=== PATIENT | female | born 1970 | race Caucasian/White ===

== ENCOUNTER 2019-01-12 15:19 | Outpatient (REF) | payer BC, SELFPAY | END 2019-01-12 15:39 | LOC: NCHCN 15:19 | PROVIDERS: PCP Nurse Practitioner Family; Visit Provider Nurse Practitioner Family | DX: R39.11 Hesitancy of micturition (principal) | CPT/HCPCS: 87480; 87510; 87660 ==

== ENCOUNTER 2019-10-18 14:17 | Outpatient (REF) | payer BC, SELFPAY ==
--- NOTE | 2019-10-18 13:15 | PAPFT_PTH ---
PATIENT: Geovanna Vital LOC: [facility] U#:[id number] AGE/SX: 49/F ROOM: RE10/18/[address]: Kati Christensen : 1970 BED: DIS: 10/18/2019 SPEC #: [id number] RECD: 10/19/19 12:59 STATUS: NEREYDA REQ #: [id number] MEHRAN: 10/18/19 13:[address]: Kati Christensen DEPT: [facility] Cytology RECD BY: Sharon Christopher Tissues: 1 - CX/ENDOCX FOR PAP SMEARS Procedures: PAP THIN PREP/UVM Screening HPV DNA PROBE Comments: [id number]
[2019-10-18 21:28] LABS: TSH (W/Ref FT4) 0.81 uIU/mL (0.36-3.74)
== END 2019-10-18 14:37 ==
LOC: NCHCN 14:17
PROVIDERS: PCP Nurse Practitioner Family; Visit Provider Nurse Practitioner Family
DX: Z00.00 Encounter for general adult medical examination without abnormal findings (principal); E66.3 Overweight; Z12.4 Encounter for screening for malignant neoplasm of cervix; Z01.419 Encounter for gynecological examination (general) (routine) without abnormal findings; Z11.51 Encounter for screening for human papillomavirus (HPV)
CPT/HCPCS: 88142; 84443; 87624

== ENCOUNTER 2020-08-21 11:21 | Outpatient (REF) | payer BC, SELFPAY ==
[2020-08-22 14:46] LABS: Chlamydia Result Negative (Negative); GC Result Negative (Negative)
== END 2020-08-21 11:41 ==
LOC: NCHCN 11:21
PROVIDERS: PCP Nurse Practitioner Family; Visit Provider Family Medicine
DX: O71.82 Other specified trauma to perineum and vulva (principal)
CPT/HCPCS: 87491; 87591

== ENCOUNTER 2020-11-22 14:38 | Outpatient (REF) | payer BC, SELFPAY ==
[2020-11-22 19:23] LABS: HCT 40.3 % (36.0-46.0); HGB 13.5 g/dL (11.2-15.7); MCH 30.8 pg (27.0-33.0); MCHC 33.5 % (32.0-36.0); MCV 91.8 fL (80-95); MPV 10.8 fL (8.0-11.0); Platelet Count 232 10^3/uL (130-400); RBC 4.39 10^6/uL (3.93-5.22); RDW 12.5 % (11.7-14.6); RDW-SD 42.3 fL; WBC 5.29 10^3/uL (4.4-10.8)
[2020-11-22 19:41] LABS: FREE T4 1.06 ng/dL (0.76-1.46); TSH 0.76 uIU/mL (0.36-3.74)
[2020-11-22 21:29] LABS: Vitamin D 25 Total 18.3 ng/mL (30-100)
[2020-11-23 16:54] LABS: T3,Free 3.6 pg/mL (2.8-5.3)
== END 2020-11-22 14:39 | disposition home or self-care (01) ==
LOC: NCHCN 14:38
PROVIDERS: PCP Nurse Practitioner Family; Visit Provider Family Medicine
DX: R00.2 Palpitations (principal)
CPT/HCPCS: 82306; 85027; 84439; 84443; 84481

== ENCOUNTER 2020-11-27 01:47 | Outpatient (CLI) | payer BC, SELFPAY ==
--- NOTE | 2020-11-27 08:44 | DI.MAMMO_ITS ---
EXAM: MG MAMMO SCREENING CLINICAL HISTORY: SCREENING, Z12.31 TECHNIQUE: Bilateral full field digital CC and MLO mammographic images were obtained with 3D tomosyn thesis and utilizing computer aided detection (CAD). COMPARISON: None. FINDINGS: Masses/Architectural Distortion: None seen. Microcalcifications: No suspicious pleomorphic-type are seen. Skin Thickening/Nipple Retraction: None. IMPRESSION: 1. No significant interval change with no specific features of malignancy noted. 2. Unless there is more urgent need, screening mammography is recommended, as per [place] [employer] guidelines. BI-RADS Category 1 - Negative Breast Density - Category B - Scattered areas of fibroglandular density Breast density category C or D implies that the patient has dense breast tissue. Dense breast tissue is very common and is not abnormal but dense breast tissue can make it harder to find cancer on a ma mmogram. Also, dense breast tissue may increase their breast cancer risk. This information about the result of the mammogram report was provided to the patient to raise their awareness. Use this report when you speak with the patient about their risks for breast cancer, which includes their family hist ory. At that time, you may recommend for more screening tests (Ultrasound or MRI) as they might be us eful based on their risk. A negative radiographic report should not delay biopsy if a dominant or clinically suspicious mass is present. Up to ten percent of cancers are not identified on mammography. A negative report may reinforce clinical impression. Adenosis and dense breasts may obscure an underlying neoplasm. False positive reports average 6 to 10%. Patient will receive a letter notifying them of these results.
== END 2020-11-27 02:07 ==
PROVIDERS: PCP Nurse Practitioner Family; Visit Provider Family Medicine
DX: Z12.31 Encounter for screening mammogram for malignant neoplasm of breast (principal)
CPT/HCPCS: 77063; 77067

== ENCOUNTER 2021-05-13 01:33 | Outpatient (CLI) | payer BC, SELFPAY ==
[2021-05-13 10:58] LABS: Source Nasal/Nares
[2021-05-13 15:19] LABS: COVID-19 PCR Negative (Negative)
== END 2021-05-13 01:34 | disposition home or self-care (01) ==
LOC: LBO 01:33
PROVIDERS: PCP Nurse Practitioner Family; Visit Provider Surgery
DX: Z20.822 Contact with and (suspected) exposure to COVID-19 (principal); Z01.818 Encounter for other preprocedural examination
CPT/HCPCS: 87635

== ENCOUNTER 2021-05-15 07:27 | Day surgery (SDC) | payer BC, SELFPAY ==
--- NOTE | 2021-05-15 06:32 | W.COLOREPORT ---
Colonoscopy Report Date of procedure: 05/15/21 Pre-op diagnosis general: Colon Cancer Screening Post-op diagnosis procedure note: other (rectal polyps) Procedure: Colonoscopy with polypectomy Surgeon: Lori New Anesthesia Type: General:No Airway (Chavo Chandra CRNA) Estimated blood loss (mL): 3 Pathology: other (4 rectal polyps) Complications: None Disposition: same day Indications: The patient is here for Colonoscopy pre-op. She has no family history of colon cancer. She has not had any bowel habit changes. -Discussed colonoscopy bowel prep as well as the procedure. Discussed possible complications of the procedure to include bleeding, pain, perforation, missed small lesion/polyp, sore throat, aspiration and adverse reaction to the medications. Questions were answered to patient?s satisfaction. No guarantees were implied or given. Prep: Miralax/Dulcolax Procedure Start Time: 08:25 Procedure End Time: 08:48 Retraction Time: 13 minutes Findings: 4 small, most likely benign, rectal polyps Procedure Description: After informed consent was obtained the patient was taken to the procedure room and placed in a left decubitous position. Monitors were applied and a time out was done. The patients name, date of , procedure, allergies to medications and metal in their body was reviewed. The patient was then sedated. Once sedated and comfortable a rectal exam was done. External exam was normal. Internal exam revealed a normal sphincter tone and no palpable masses. The scope was then introduced and retro-flexed. No internal hemorrhoids, polyps or masses were identified on retro-flexion. The scope was then advanced to the cecum without difficulty. The ileocecal vlave and appendiceal orifice were identified. The prep was good. The scope was then slowly retracted over 13 minutes back into the rectum. Polyps were removed with cold forceps in the rectum x4. There was no diverticulosis noted. The scope was removed and the patient was woken up and taken back to Same day surgery in stable condition. The patient tolerated the procedure well and there were no immediate complications. Follow up: The patient should follow up in 10 years, most liekly, unless they develop changes in bowel habits or other new gastrointestinal complaints.
--- NOTE | 2021-05-15 06:33 | W.PM.DSUDISC ---
Discharge Plan Disposition Patient Disposition: HOME Condition: Good Discharge Details Reason For Visit: Colonoscopy Attending Provider: Lori New Primary Care Provider: Kati Christensen Home Meds and New Rx's Prescriptions: Continued mometasone [Nasonex] 50 mcg/actuation spray,non-aerosol 2 spray intranasal DAILY RF: 0 hydrocortisone 1 % cream 1 applic topical TID PRNRF: 0 fexofenadine [Indy Allergy] 180 mg tablet 180 mg PO DAILY RF: 0 Discontinued bisacodyl [Dulcolax (bisacodyl)] 5 mg tablet,delayed release (DR/EC) 5 mg PO ONCE Qty: 4 RF: 0 polyethylene glycol 3350 17 gram/dose powder 238 g PO ONCE Qty: 238 RF: 0 Discharge Instructions Instructions: Colorectal Polyps (DC) Additional Instructions: Findings: 4 small polyps. Most likely benign Follow up: depends on final pathology results. You will receive a letter in the mail Please call if you develop: fevers >101.5 Nausea or Vomiting Abdominal pain that is not transient Rectal bleeding that is more then a tbsp A hard abdomen and inability to pass gas DAY SURGERY UNIT POST ENDOSCOPY INSTRUCTIONS Instructions for everyone who is given Anesthesia: For your safety, please do the following for the next 24 Hours: a. Do not drive or operate dangerous equipment b. Do not drink alcohol beverages or use any recreational drugs for the first 24 hours or while taking pain medications. The medications in your body may have a reaction that can be dangerous. c. Do not make any important decisions or sign any important papers 1. Generally there are no restrictions on your activity after a day or so has gone by, but you may feel a bit fatigued for a few days. 2. After you arrive home you may have a light meal and return to a normal diet as you can tolerate it without feeling sick to your stomach. 3. After surgery, you may feel pain or discomfort. This should be only transient, but if it persists please contact your doctor. 4. If there are any questions regarding the findings of your procedure, please feel free to contact your doctor. 6. If you are unable to contact your doctor with a problem, contact the hospital at [phone]. 7. Continue all your regular medications unless directed otherwise. I understand the above instructions and have no questions. Signature of Patient or Responsible Adult Escort Date/Time Name of Responsible Adult Escort Signature of Nurse Date/Time Activity:: Activity as Tolerated Diet:: As Tolerated Discharge Orders Discharge Orders: Discharge Order (Routine); Ordered 05/15/21 Ordered By: Lori New
[2021-05-15 07:46] VITALS: BP 113/70; PULSE 75; RESP 18; TEMP 36.4; O2SAT 99
--- NOTE | 2021-05-15 08:03 | W.ANESPRE ---
General Info Date of Service Date Performed: 05/15/21 Height: 5 ft 10 in Weight: 77.111 kg Body Mass Index (BMI): 24.3 Surgical Procedure: Operation Date: 05/15/21 09:05 Proposed Procedures Side Surgeon p Chau New MD Meds Allergies and Home Medications Allergies Allergy/AdvReac Type Severity Reaction Status Date / Time aspirin Allergy Severe unknown Verified 05/15/21 07:43 Penicillins Allergy Intermediate unknown Verified 05/15/21 07:43 Home Medication Medication Instructions Recorded fexofenadine 180 mg tablet 180 mg PO DAILY 12/04/20 hydrocortisone 1 % topical cream 1 applic TOPICAL TID PRN 12/04/20 bisacodyl 5 mg tablet,delayed 5 mg PO ONCE #4 tab 04/04/21 release mometasone 50 mcg/actuation nasal 2 spray INTRANASAL DAILY 04/04/21 spray polyethylene glycol 3350 17 238 g PO ONCE #238 g 04/04/21 gram/dose oral powder Current Visit Medications: Current Medications Generic Name Dose Route Start Last Admin Trade Name Anilq PRN Reason Stop Dose Admin Hyoscyamine Sulfate 0.125 mg 05/15/21 06:34 Hyoscyamine 0.125 Mg Sl/Oral/Chew SL DIRECTED PRN Ringer's Solution 1,000 mls @ 80 mls/hr 05/15/21 06:00 IV 06/02/21 23:59 [facility] IV Miscellaneous Supplies 1 each 05/15/21 06:00 Iv Access IV 06/02/21 23:59 DIRECTED ANDREINA Ondansetron HCl 4 mg 05/15/21 06:34 Ondansetron 4 Mg/2 Ml Vial IVP Q4H PRN PRN Nausea / Vomiting Sodium Chloride 0 ml 05/15/21 06:00 Normal Saline Flush 10 Ml Syr IV 06/02/21 23:59 PRN PRN Sodium Chloride 0 ml 05/15/21 06:00 Normal Saline 10 Ml Vial IJ 06/02/21 23:59 DIRECTED PRN Sterile Water 0 ml 05/15/21 06:00 Water,Injection,Sterile 10 Ml Vial IJ 06/02/21 23:59 DIRECTED PRN PFSH Active Problems Active Problems: Problem Status Onset Code Urinary incontinence R32 Allergic rhinitis J30.9 Stress at home F43.9 Eczema L30.9 Genital herpes A60.00 Palpitations R00.2 Overweight E66.3 Numbness and tingling in left arm R20.0, R20.2 Anxiety F41.9 Vitamin D deficiency E55.9 Screening for colon cancer Z12.11 Medical History Medical History Benign neoplasm of retina Dysgeusia Former smoker Periurethral tear in female Urinary hesitancy Urticaria Tobacco Smoking/Tobacco Use Status: Former Tobacco Use Alcohol Alcohol Intake: never Substance Use Substance use: Never Substance use type: does not use Vital Signs and Lab Results Vital Signs Most Recent Vital Signs in EMR: Most Recent Vital Signs Temp Pulse Resp BP Pulse Ox 36.4 C L 75 18 113/70 99 05/15/21 07:46 05/15/21 07:46 05/15/21 07:46 05/15/21 07:46 05/15/21 07:46 Lab Results Blood Type / Crossmatch: No Data to Display Complete Blood Count: No Data to Display Complete Metabolic Panel: No Data to Display Liver Function Panel: No Data to Display Coagulation Panel: No Data to Display Cardiac Panel: No Data to Display Arterial Blood Gas: No Data to Display Venous Blood Gas: No Data to Display Pancreas Panel: No Data to Display Thyroid Panel: No Data to Display Infectious Disease: Coronavirus (COVID-19)(PCR) Negative (Negative) 05/13/21 09:11 05/13/21 Coronavirus 2019 Source Nasal/Nares 05/13/21 09:11 05/13/21 Blood Cultures: No Data to Display Toxicology Panel: No Data to Display Panel: No Data to Display Anesthesia Assessment and Plan Anesthesia History Personal History: No History of Anesthesia Complications Family History: No Family History of Anesthesia Complications Exercise Tolerance Exercise Tolerance: Metabolic Equivalents>4 Pertinent Negatives Pertinent Negatives: No Symptoms of GERD, No Major Cardiovascular Symptoms or Complaints, No Major Pulmonary Symptoms or Complaints and No History of CVA/TIA Cardiac & Pulmonary Exam Cardiac Exam: Normal S1/S2 Heart Sounds Pulmonary Exam: Clear Bilateral Breath Sounds Airway Exam Known Difficult Airway: No Mallampati Class: 1 Mouth Opening: Normal (> 3cm) Thyromental Distance: Greater than 3 cm Neck Range of Motion: Full ROM Neck Circumference: Normal Teeth Condition: Normal Dentition Airway Comments: Bottom left crown Top right crown ASA Classification ASA Score: ASA 2 Emergency Case?: No NPO Status NPO Status: NPO Clears >2 hours, Solids >8 hours Status Status: Negative HCG Anesthesia Plan Resuscitation Status: Full Code Anesthesia Technique: General Anesthesia Airway Planned: Natural Airway Monitors Used: Standard Monitors
[2021-05-15] MEDS: Lactated Ringers 1,000 ML 80 ML IV (08:05)
[2021-05-15 08:07] VITALS: BMI 24.3
--- NOTE | 2021-05-15 08:27 | BOWEL_PTH ---
PATIENT: Geovanna Vital LOC: [facility] U#:[id number] AGE/SX: 51/F ROOM: RE05/15/[address]: Lori eNw MD : 1970 BED: DIS: 05/15/2021 SPEC #: [id number] RECD: 05/15/21 12:46 STATUS: NEREYDA REQ #: [id number] MEHRAN: 05/15/21 08:[address]: Lori New DEPT: Surgical Specimen RECD BY: Sharon Christopher ENTERED: 05/15/21 12:47 SP TYPE: Bowel OTHR DR: Kati Christensen Tissues: 1 - BIOPSY BOWEL Procedures: GROSS AND MICRO LEVEL 4 Comments: [id number]
[2021-05-15 08:55] VITALS: BP 115/70; PULSE 80; RESP 18; TEMP 36.5; O2SAT 100
--- NOTE | 2021-05-15 09:09 | W.ANESPOSTOP ---
Postoperative Evaluation Date, Time and Location Date Performed: 05/15/21 Time Performed: 09:09 Patient Location: Day Surgery Unit Vital Signs Most Recent Imported Vital Signs: Most Recent Vital Signs Temp Pulse Resp BP Pulse Ox 36.5 C 80 18 115/70 100 05/15/21 08:55 05/15/21 08:55 05/15/21 08:55 05/15/21 08:55 05/15/21 08:55 Pain Score Most Recent Pain Score: Most Recent Pain Score Pain Level 0 05/15/21 08:55 Assessment Mental Status: Awake (Alert & Oriented to Patient Baseline) Airway and Respiratory Function: Patent airway with normal (patient baseline) respiratory exam Cardiovascular Function: Hemodynamically Stable Hydration Status: Adequately Hydrated Nausea & Vomiting: No Nausea or Vomiting Pain: Pt. Denies Any Pain Peripheral Nerve Block: Patient did not receive a nerve block
[2021-05-15 09:20] VITALS: BP 115/73; PULSE 56; RESP 18; TEMP 36.2; O2SAT 100
== END 2021-05-15 09:53 | disposition home or self-care (01) ==
LOC: SUR 07:27
PROVIDERS: PCP Nurse Practitioner Family; Visit Provider Surgery
PROC: 0DJD8ZZ Inspection of Lower Intestinal Tract, Via Natural or Artificial Opening Endoscopic (ICD-10-PCS; CPT 45378; principal; 2021-05-15 09:00)
DX: Z12.11 Encounter for screening for malignant neoplasm of colon (principal); D12.8 Benign neoplasm of rectum; K62.1 Rectal polyp
CPT/HCPCS: 45380; 81025; 88305; J2001

== ENCOUNTER 2022-03-25 18:34 | Outpatient (REF) | payer BC, SELFPAY ==
[2022-03-27 11:38] LABS: HSV 1 DNA Result Negative (Negative); HSV 2 DNA Result Negative (Negative); Varicella Zoster DNA Result Negative ((See Note))
== END 2022-03-25 18:35 | disposition home or self-care (01) ==
LOC: LBN 18:34
PROVIDERS: PCP Nurse Practitioner Family; Visit Provider Nurse Practitioner Family
DX: R21 Rash and other nonspecific skin eruption (principal); Z11.59 Encounter for screening for other viral diseases
CPT/HCPCS: 87529; 87798; 87070; 87205

== ENCOUNTER 2022-08-29 14:48 | Outpatient (REF) | payer BC, SELFPAY ==
[2022-08-29 21:34] LABS: TSH (W/Ref FT4) 0.81 uIU/mL (0.36-3.74)
== END 2022-08-29 14:49 | disposition home or self-care (01) ==
LOC: NCHCN 14:48
PROVIDERS: PCP Nurse Practitioner Family; Visit Provider Nurse Practitioner Family
DX: F41.8 Other specified anxiety disorders (principal); Z86.59 Personal history of other mental and behavioral disorders
CPT/HCPCS: 84443

== ENCOUNTER 2023-05-11 13:10 | Outpatient (REF) | payer BC, SELFPAY ==
[2023-05-11 15:30] LABS: Vitamin D 25 Total 29.2 ng/mL (30-100)
== END 2023-05-11 13:11 | disposition home or self-care (01) ==
LOC: NCHCN 13:10
PROVIDERS: PCP Nurse Practitioner Family; Visit Provider Nurse Practitioner Family
DX: N32.9 Bladder disorder, unspecified (principal); E55.9 Vitamin D deficiency, unspecified; A60.00 Herpesviral infection of urogenital system, unspecified; F41.8 Other specified anxiety disorders; E66.9 Obesity, unspecified; M54.2 Cervicalgia; L30.9 Dermatitis, unspecified
CPT/HCPCS: 82306

== ENCOUNTER → 2023-06-05 00:51 | Outpatient (CLI) | payer BC, SELFPAY ==
--- NOTE | 2023-06-05 09:26 | DI.MAMMO_ITS ---
Exam(s) MAMMO SCREENING EXAM: MAMMO SCREENING CLINICAL HISTORY: SCREENING, Z12.31 TECHNIQUE: Mammograms were interpreted according to the usual protocol including computer analysis w [employer] CAD system, tomosynthesis and C-view imaging. COMPARISON: 2020 FINDINGS: The breasts are composed of scattered fibroglandular densities, Breast Density category B. No suspicious masses or suspicious microcalcifications are seen. No skin thickening or abnormal axillary lymph nodes are seen. There has been no significant change from prior exam. IMPRESSION: BI-RADS Category 1, Negative mammogram Yearly screening mammography is recommended. Breast Density - Category B, scattered fibroglandular densities. A negative radiographic report should not delay biopsy if a dominant or clinically suspicious mass is present. Up to ten percent of cancers are not identified on mammography. A negative report may reinforce clinical impression. Adenosis and dense breasts may obscure an underlying neoplasm. False positive reports average 6 to 10%. Patient will receive a letter notifying them of these results.
== END ==
PROVIDERS: PCP Nurse Practitioner Family; Visit Provider Nurse Practitioner Family
DX: Z12.31 Encounter for screening mammogram for malignant neoplasm of breast (principal)
CPT/HCPCS: 77063; 77067

== ENCOUNTER 2024-01-06 09:26 | Outpatient (REF) | payer BC, SELFPAY ==
[2024-01-06 14:53] LABS: Calculated LDL 107 mg/dL (<100); Cholesterol 221 mg/dL (<200); HDL Cholesterol 103 mg/dL (40-60); Triglyceride 55 mg/dL (<150)
[2024-01-06 23:33] LABS: Hepatitis C Ab w Rflx HCV PCR Negative (Negative)
== END 2024-01-06 09:27 | disposition home or self-care (01) ==
LOC: NCHCN 09:26
PROVIDERS: PCP Nurse Practitioner Family; Visit Provider Nurse Practitioner Family
DX: Z00.00 Encounter for general adult medical examination without abnormal findings (principal); Z13.220 Encounter for screening for lipoid disorders; Z11.59 Encounter for screening for other viral diseases
CPT/HCPCS: 80061; 86803

== ENCOUNTER 2024-01-14 14:20 | Outpatient (REF) | payer BC, SELFPAY ==
--- NOTE | 2024-01-14 08:15 | PAPFT_PTH ---
PATIENT: Geovanna Vital LOC: [facility]#:[id number] AGE/SX: 53/F ROOM: RE01/14/[address]: Kati Christensen : 1970 BED: DIS: 01/14/2024 SPEC #: [id number] RECD: 01/14/24 14:22 STATUS: NEREYDA HERNANDEZ #: [id number] MEHRAN: 01/14/24 08:[address]: Kati Christensen DEPT: [facility] Cytology RECD BY: Sharon Christopher Tissues: 1 - CX/ENDOCX FOR PAP SMEARS Procedures: PAP THIN PREP/UVM Screening HPV DNA PROBE Comments: [id number]
== END 2024-01-14 14:21 | disposition home or self-care (01) ==
LOC: NCHCN 14:20
PROVIDERS: PCP Nurse Practitioner Family; Visit Provider Nurse Practitioner Family
DX: Z12.4 Encounter for screening for malignant neoplasm of cervix (principal); Z11.51 Encounter for screening for human papillomavirus (HPV); Z00.00 Encounter for general adult medical examination without abnormal findings
CPT/HCPCS: 88142; 87624

== ENCOUNTER 2024-07-05 09:08 | Outpatient (CLI) | payer MEDICAID, SELFPAY ==
--- NOTE | 2024-07-05 15:00 | DI.MAMMO_ITS ---
Exam(s) MAMMO SCREENING EXAM: MAMMO SCREENING CLINICAL HISTORY: Z12.39 Screening TECHNIQUE: Mammograms were interpreted according to the usual protocol including computer analysis w [employer] CAD system, tomosynthesis and C-view imaging. COMPARISON: 2020 and 2022 FINDINGS: The breasts are composed of scattered fibroglandular densities, Breast Density category B. No suspicious masses or suspicious microcalcifications are seen. No skin thickening or abnormal axillary lymph nodes are seen. There has been no significant change from prior exams. IMPRESSION: BI-RADS Category 1, Negative mammogram Yearly screening mammography is recommended. Breast Density - Category B, scattered fibroglandular densities. A negative radiographic report should not delay biopsy if a dominant or clinically suspicious mass is present. Up to ten percent of cancers are not identified on mammography. A negative report may reinforce clinical impression. Adenosis and dense breasts may obscure an underlying neoplasm. False positive reports average 6 to 10%. Patient will receive a letter notifying them of these results.
== END 2024-07-05 09:28 ==
LOC: DI 09:08
PROVIDERS: PCP Nurse Practitioner Family; Visit Provider Nurse Practitioner Family
DX: Z12.31 Encounter for screening mammogram for malignant neoplasm of breast (principal); R92.323 Mammographic fibroglandular density, bilateral breasts
CPT/HCPCS: 77063; 77067